=== PATIENT | female | born 1970 | race Caucasian/White ===

== ENCOUNTER 2019-12-29 07:33 | Day surgery (SDC) | payer OTHER ==
[2019-12-29 08:21] VITALS: BMI 19.1
[2019-12-29 09:51] VITALS: TEMP 97.8
[2019-12-29 11:19] VITALS: PULSE 62
[2019-12-29 11:21] VITALS: BP 104/60
--- NOTE | 2019-12-31 16:02 | PATH ---
Surgical Pathology Report Patient Name: BRANDAN GAMEZ [facility]. Rec. #: [id number] /Age/Gender: 1970 (Age: 49) / F Account: [id number] Location: [facility]-ENDOSCOPY Taken: 12/29/2019 Received: 12/29/2019 Reported: 12/31/2019 Physicians: Alia Malhotra M.D. Specimen(s) Received A: DUODENUM SECOND PORTION B: DUODENAL BULB C: STOMACH Clinical History The Positive celiac screening Postoperative diagnosis: Celiac disease Final Diagnosis A. DUODENUM SECOND PORTION, BIOPSY: DUODENAL MUCOSA WITH INCREASED INTRAEPITHELIAL LYMPHOCYTES, VILLOUS ATROPHY, CRYPT HYPERPLASIA, AND RARE ACUTE INFLAMMATORY CELLS IN THE LAMINA PROPRIA. SEE COMMENT. B. DUODENAL BULB, BIOPSY: DUODENAL MUCOSA WITH INCREASED INTRAEPITHELIAL LYMPHOCYTES, VILLOUS ATROPHY, AND CRYPT HYPERPLASIA, AND RARE ACUTE INFLAMMATORY CELLS IN THE LAMINA PROPRIA. SEE COMMENT. C. STOMACH, BIOPSY: GASTRIC MUCOSA WITH CHRONIC GASTRITIS. IMMUNOSTAIN FOR H. PYLORI IS NEGATIVE. NEGATIVE FOR INTESTINAL METAPLASIA. Comment: While not specific, the findings are characteristic of celiac disease (gluten sensitive enteropathy). Similar histologic findings also can be seen in Helicobacter related infections, drug reactions, food allergy, immune system abnormalities, inflammatory bowel disease, lymphocytic colitis and gastritis. Clinical correlation including serologic testing is recommended. Electronically Signed Mary Ellen Hicks M.D. Gross Description A. Received in formalin labeled "biopsy duodenum second portion," is a 0.7 x 0.6 x 0.1 cm aggregate of palacio soft tissue fragments. The formalin is filtered and the specimen is entirely submitted in one cassette. B. Received in formalin, labeled "biopsy duodenal bulb" are 5 palacio, irregular portions of soft tissue ranging from 0.2-0.4 cm. in greatest dimension. The specimens are submitted in toto in one cassette. C. Received in formalin, labeled "biopsy stomach" are 4 palacio, irregular portions of soft tissue ranging from 0.1-0.3 cm. in greatest dimension. The specimens are submitted in toto in one cassette. 12/29[facility]2019 [facility]
== END 2019-12-29 09:45 | disposition home or self-care (01) ==
LOC: JASU-ENDO 07:33
PROVIDERS: ATTEND Internal Medicine Gastroenterology
PROC: 0DB68ZX Excision of Stomach, Via Natural or Artificial Opening Endoscopic, Diagnostic (ICD-10-PCS; 2019-12-29)
PROC: 0DB98ZX Excision of Duodenum, Via Natural or Artificial Opening Endoscopic, Diagnostic (ICD-10-PCS; principal; 2019-12-29 08:30)
DX: K90.0 Celiac disease (principal)
CPT/HCPCS: 81025; 88305-TC; 88342-TC